=== PATIENT | female | born 1970 | race Caucasian/White ===

== ENCOUNTER 2024-12-04 19:03 | Emergency (ER) | payer BC, SELFPAY ==
[2024-12-04] VITALS (14 sets, daily range): BP systolic 164–194; BP diastolic 85–112; PULSE 83–99; RESP 16; TEMP 36.7; O2SAT 95–98; BMI 29.8
--- OUTSIDE RECORDS SUMMARY | 2024-12-04 19:05 | XMS_ITS | Clinical Summary ---
Author Organization [facility] Address [address] , [address] [place] [address] Phone Care Team Providers Care Seconds Handler Name Role [facility] Unavailable Unava ilable Conditions or Problems Problem Name Problem Code Onset Date Status Entry Date Provider Comment Standard Description Annotate Other lesions of median nerve, bilateral upper limbs [id number] (SNOMED CT) Active Sumit Morocho MD Lesion of median nerve Medications No information available. Medications Administered No information available. Allergies, Adverse Reactions, Alerts No information available. Results Date Name Value Unit Range Flag Description Internal Other: Verbal Autho rization/Emergency Contact - OBS VERBAL_EMER Done Verbal au thorization and emergency contact Internal Other: Authorizatio n - OBS [email or web address] Yes Authoriza tion: Release of Information - Authorize [facility] - Payment and Healthcare Operations ROIAUTHOTHER Yes Authoriz ation: Release of Information - Authorize Others/Insurance - Payment and Healthcare Operations HIECONSENT Yes Consent To Release information to the Health Information Exchange (HIE) [email or web address] Yes Authorizat ion: Authorization for [facility] to leave messages, voicemail, send text messages, send emails AUTHRELHCARE Yes Authoriz ation: Release/Retrieval of Information to/from Healthcare Facilities, Pharmacy Benefit Payers and Providers AUTHPRIVPRAC Yes Authoriz ation: Notice of privacy practices AUTHBENEFIT Yes Authoriza tion: Assignment of Benefits and Payment Agreement Plan of Care No information available. Procedures Code Procedure Name Date Entry Date CPT-24361 Nerve Conduction 9-10 studies CPT-96777 EMG with NCS (5+ muscles) - 2 limbs 11/04 Vital Signs No information available. Immunizations No information available. Advance Directives No information available.
--- OUTSIDE RECORDS SUMMARY | 2024-12-04 19:06 | XMS_ITS | Clinical Summary ---
Author Organization [employer] [facility] Address [address] [place] [id number] Care Team Providers Care Jaw Skinner Name Role Phone Heather Uribe MD Primary Care Provider [phone] Allergies Active Allergy Reactions Criticality Noted Date Comments Amoxicillin Rash,Hives,Itching 08/19/2012 AMOXICILLIN Rosuvastatin Diarrhea,Nausea Only Medium 02/24/2023 Medications No known medications Active Problems Problem Noted Date Diagnosed Date Right carpal tunnel syndrome 11/13/2023 Left carpal tunnel syndrome 11/13/2023 Bilateral carpal tunnel syndrome 10/30/2023 Pap smear for cervical cancer screening 01/21/20 23 Overview (01/20/2023): 12/19/2022: NIL/HPV negative Plan: Pap and HPV due in 5 years. Mixed hyperlipidemia 07/07/2019 Palpitations 08/19/2012 Immunizations Immunization Administration Dates Next Due Hepatitis A (Adult) 08/10/2012,11/05/2009,2003 Hepatitis A, Unspecified 11/05/2009 Hepatitis B (Adult) 05/28/2004,03/10/2003,1999 Influenza, High-dose Inactivated 06/17/2011 Influenza, IIV3 (Age 6-35 mos) 05/22/2009 Influenza, IIV3 (Age >=3 years) 06/17/2011,06/24 Td (Age >=7 Years) 07/20/1997 Tdap 06/24/2024,07/07/2016 Zoster (Shingrix-RZV, recombinant) 01/16/2022 Family History Medical History Relation Name Comments No Known Problems Brother 1 No Known Problems Brother 2 Hypertension Father Cancer-breast Mother Hyperthyroidism Mother Grave's Other Mother prediabetes Cancer-ovarian No Family History Relation Name Status Comments Brother 1 Alive Brother 2 Alive Father Alive Mother Alive Diagnosed at 55 Social History Tobacco Use Types Packs/Day Years Used Date Smoking Tobacco: Never Smokeless Tobacco: Never Alcohol Use Standard Drinks/Week Comments Yes 0 (1 standard drink = 0.6 oz pur e alcohol) 6 drinks/week PHQ-2 Answer Date Recorded PHQ-2 TOTAL SCORE 0 12/19/2022 Social Connections Answer Date Recorded Frequency of Communication with Friends and Fami ly 0 12/19/2022 Financial Resource Strain Answer Date R ecorded Difficulty of Paying Living Expenses 3 12/19/2022 Difficulty of Paying Living Expenses Not on file 12/19/2022 Food Insecurity Answer Date Recorded Worried About Running Out of Food in the Last Ye ar 1 12/19/2022 Transportation Needs Answer Date Record ed Lack of Transportation (Medical) 1 12/19/2022 Housing Stability Answer Date Recorded Unable to Pay for Housing in the Last Year 1 12/19/2022 Comments No Sex and Gender Information Value Date Recorded Sex Assigned at Not on file Legal Sex Female 5:27 AM [employer] Gender Identity Not on file Sexual Orientation Not on file Obstetrics History Para Term AB IAB SAB Ectopic Multiple Livin g Live Births 2 2 Date Outcome GA Total Labor Labor/2nd/3rd Weight Sex Type Anes PTL Char A1 A5 Name Clin Para Para Last Filed Vital Signs Vital Sign Reading Time Taken Comments Blood Pressure 175/89 06/24/2024 7:23 PM CDT Pulse 78 06/24/2024 7:23 PM CDT Temperature 36.3 C (97.4 F) 06/24/2024 7:23 PM CDT Respiratory Rate 16 06/24/2024 7:23 PM CDT Oxygen Saturation 97% 06/24/2024 7:23 PM CDT Inhaled Oxygen Concentration - - Weight 92.6 kg (204 lb 3.2 oz) 02/24/2023 8:56 A M CDT Height 171.7 cm (5' 7.6) 12/19/2022 10:42 AM CD T Body Mass Index 31.42 12/19/2022 10:42 AM CDT Plan of Treatment Health Maintenance Due Date Last Done Comments Pneumococcal series for age 50+ (1 of 1 - PCV) 2020 Zoster (shingles) series for age 50+ (2 of 2) 03/13/2022 01/16/2022 BMI (ht and wt on same day) for age 18+ 12/20/2023 12/19/2022, 06/07/2021, 05/21/2021 Depression screening for age 12+ 12/20/2023 12/20/19, 06/07/2021 Mammogram for age 45-75 01/21/2024 01/21/20, 09/17/2021, 09/11/2020, Additional history exists COVID-19 vaccine series ( - season) 2024 Influenza Vaccine (Season Ended) 2025 06/17/2011, 06/17/2011, 06/24/2010, Additional history exists Fecal testing sDNA-FIT ([place] guard) for age 45-75 12/30/2025 12/30/2022 Lipids for age 45-75 12/20/2027 12/19/2022, 06/07/20 Pap test for age 21-65 12/20/2027 , 12/19/2022, 07/07/2019 (Verified in Care Everywhere or Patient Record) Tetanus booster 06/24/2034 06/24/2024, 02/2016, 07/20/1997 HIV for age 15-65 Completed 12/19/2022 Hepatitis C screening for ag e 18-79 Completed 12/19/2022 Tdap Completed 06/24/2024, 07/07/2016 Procedures Procedure Name Priority Date/Time Associated Diagnosis Comments XR MAMMO EDWIN BILAT SCREEN Routine 01/20/2023 7:59 AM CDT Screening mammogram for breast cancer SDNA-FIT EXTERNAL (COLOGUARD) Routine 12/30/2022 8:15 AM CDT Colon cancer screening LC HIV-1/O/2, 4TH GENERATION Routine 12/19/2022 11:00 AM CDT Encounter for screening for HIV LC HCV ANTIBODY RFX TO QUANT PCR Routine 12/19/2022 11:00 AM CDT Need for hepatitis C screening test LC LIPID PANEL AND CHOL/HDL RATIO Routine 12/19/2022 11:00 AM CDT Routine general medical examination at a health care facility HPV HIGH RISK Routine 12/19/2022 9:50 AM CDT Cervical cancer screening from Last 3 Months or Most Recently Relevant to Health Maintenance Results * XR MAMMO EDWIN BILAT SCREEN (01/20/2023 7:59 AM CDT) Anatomical Region Laterality Modality BREASTS, Breast Left, Breast Right Bilateral Mammography Impressions 01/21/2023 9:14 AM CDT There is no radiographic evidence for malignancy. Recommend annual mammograms. MAMMOGRAM ASSESSMENT: ACR 1 Negative PATIENTS: You will also receive a letter with your examination results in an easy to read format. If you have questions about your results, please contact your referring provider. Narrative 01/21/2023 9:14 AM CDT For Patients: As a result of the Cures Act, medical imaging exams and procedure reports are released immediately into your electronic medical record. You may view this report before your referring provider. If you have questions, please contact your health care provider. XR MAMMO EDWIN BILAT SCREEN [[id number]] CLINICAL HISTORY: This is an asymptomatic 52 y.o. patient. INDICATION FOR EXAM: Mammogram Screening. TECHNIQUE: CC & MLO views were obtained. This study was evaluated with the assistance of Computer-Aided Detection. Breast Tomosynthesis was used in interpretation. COMPARISON FILM: Yes 09/17/21 [facility] 09/11/20 [facility] FINDINGS: The breasts are heterogeneously dense, which may obscure small masses. There are no dominant masses, suspicious micro calcifications or areas of architectural distortion. Heather Uribe MD MAMMO Final Result * SDNA-FIT EXTERNAL (COLOGUARD) (12/30/2022 8:15 AM CDT) NONINV COLON CA DNA+OCC BLD SCRN STL-IMP Negative Negative 01/08/2023 9:56 AM CDT [facility] (CLIA #:[id number]) Comment: NEGATIVE TEST RESULT. A negative Cologuard result indicates a low likelihood that a colorectal cancer (CRC) or advanced adenoma (adenomatous polyps with more advanced pre-malignant features) is present. The chance that a person with a negative Cologuard test has a colorectal cancer is less than 1 in 1500 (negative predictive value >99.9%) or has an advanced adenoma is less than 5.3% (negative predictive value 94.7%). These data are based on a prospective cross-sectional study of 10,000 individuals at average risk for colorectal cancer who were screened with both Cologuard and colonoscopy. (Kathleen Mendenhall. et al, N Engl J Med 2014;370(14):0133-5593) The normal value (reference range) for this assay is negative. COLOGUARD RE-SCREENING RECOMMENDATION: Periodic colorectal cancer screening is an important part of preventive healthcare for asymptomatic individuals at average risk for colorectal cancer. Following a negative Cologuard result, the [place] [employer] and U.S. Multi-Society Task Force screening guidelines recommend a Cologuard re-screening interval of 3 years. References: [place] [employer] Guideline for Colorectal Cancer Screening: https://www.cancer.org/cancer/iqgax-rzasju-kjaczf/xufhzxjol-netcljfzk-hqmiepp/ac s-rec ommendations.html.; Lasha HERNANDEZ, Dash ROJAS, Dorita ArangoK, Colorectal Cancer Screening: Recommendations for Physicians and Patients from the U.S. Multi-Society Task Force on Colorectal Cancer Screening , Am J Gastroenterology 2017; 112:4652-2036. TEST DESCRIPTION: Composite algorithmic analysis of stool DNA-biomarkers with hemoglobin immunoassay. Quantitative values of individual biomarkers are not reportable and are not associated with individual biomarker result reference ranges. Cologuard is intended for colorectal cancer screening of adults of either sex, 45 years or older, who are at average-risk for colorectal cancer (CRC). Cologuard has been approved for use by the U.S. FDA. The performance of Cologuard was established in a cross sectional study of average-risk adults aged 50-84. Cologuard performance in patients ages 45 to 49 years was estimated by sub-group analysis of near-age groups. Colonoscopies performed for a positive result may find as the most clinically significant lesion: colorectal cancer [4.0%], advanced adenoma (including sessile serrated polyps greater than or equal to 1cm diameter) [20%] or non- advanced adenoma [31%]; or no colorectal neoplasia [45%]. These estimates are derived from a prospective cross-sectional screening study of 10,000 individuals at average risk for colorectal cancer who were screened with both Cologuard and colonoscopy. (Kathleen Mendenhall. et al, N Engl J Med 2014;370(14):3105-2575.) Cologuard may produce a false negative or false positive result (no colorectal cancer or precancerous polyp present at colonoscopy follow up). A negative Cologuard test result does not guarantee the absence of CRC or advanced adenoma (pre-cancer). The current Cologuard screening interval is every 3 years. ([place] [employer] and U.S. Multi-Society Task Force). Cologuard performance data in a 10,000 patient pivotal study using colonoscopy as the reference method can be accessed at the following location: www.PutPlace/results. Additional description of the Cologuard test process, warnings and precautions can be found at www.[employer]rd.com. Stool specimen (specimen) (Rectum) 12/30/2022 8:15 AM CDT 12/31/2022 7:30 PM CDT Heather Uribe MD URINE Final Result [facility] (CLIA #:[id number]) [place] [place] [address], * (ABNORMAL) LC LIPID PANEL AND CHOL/HDL RATIO (12/19/2022 11:00 AM CDT) Cholesterol, Total 307(H) 100 - 199 mg/dL 12/23/2022 10:10 AM [facility] ([facility]) Triglycerides 213(H) 0 - 149 mg/dL 12/23/2022 10:10 AM [facility] ([facility]) HDL Cholesterol 50 >39 mg/dL 10:[address] [facility] ([facility]) VLDL Cholesterol Marko 42(H) 5 - 40 mg/dL 12/23/2022 10:10 AM [facility] ([facility]) LDL Chol Calc ([facility]) 215(H) 0 - 99 mg/dL 12/23/2022 10:[address] [facility] ([facility]) Lipid Comment: Comment 12/23/2022 10:10 AM [facility] ([facility]) Comment: Possible Familial Hypercholesterolemia. FH should be suspected when fasting LDL cholesterol is above 189 mg/dL or non-HDL cholesterol is above 219 mg/dL. A family history of high cholesterol and heart disease in 1st degree relatives should be collected. J Clin Lipidol 2011;5:133-140 T. Chol/HDL Ratio 6.1(H) 0.0 - 4.4 ratio 12/23/2022 10:[address] [facility] ([facility]) Comment: T. Chol/HDL Ratio Men Women 1/2 Avg.Risk 3.4 3.3 Avg.Risk 5.0 4.4 2X Avg.Risk 9.6 7.1 3X Avg.Risk 23.4 11.0 Blood BLOOD SPECIMEN / Unknown Venipuncture / Unknown 12/19/2022 11:00 AM CDT 12/19/2022 11:00 AM CDT Narrative [facility] ([facility]) - 12/23/2022 10:10 AM CDT Performed at: [address] [place] [id number] Flight Purser: Todd Ortez MD, Phone: [phone] Heather Uribe MD SEND OUTS Final Result Performing Organization Address [facility]/ZIP Co de Phone Number [facility] ([facility]) [address] [place] [address], * HCV ANTIBODY RFX TO QUANT PCR (12/19/2022 11:00 AM CDT) HCV Ab Non Reactive Non Reactive 12/23/2022 10:06 PM CDT [facility] ([facility]) Blood BLOOD SPECIMEN / Unknown Venipuncture / Unknown 12/19/2022 11:00 AM CDT 12/19/2022 11:[address] [facility] ([facility]) - 12/23/2022 10:06 PM CDT Performed at: [address] [place] [id number] Flight Purser: Todd Ortez MD, Phone: [phone] Heather Uribe MD LABORATORY Final Result Performing Organization Address [facility]/ZIP Co de Phone Number [facility] ([facility]) [address] [place] [address], * HIV-1/O/2, 4TH GENERATION (12/19/2022 11:00 AM CDT) Pathologist [facility] HIV Scr 4th Gen Non Reactive Non Reactive 12/23/2022 11:09 AM CDT [facility] ([facility]) Comment: HIV Negative HIV-1/HIV-2 antibodies and HIV-1 p24 antigen were NOT detected. There is no laboratory evidence of HIV infection. Blood BLOOD SPECIMEN / Unknown Venipuncture / Unknown 12/19/2022 11:00 AM CDT 12/19/2022 11:[address] [facility] ([facility]) - 12/23/2022 11:09 AM CDT Performed at: [address] [id number] Flight Purser: Tdod Ortez MD, Phone: [phone] Heather Uribe MD LABORATORY Final Result [facility] ([facility]) [address] [place] [address] * HPV HIGH RISK (12/19/2022 9:50 AM CDT) TYPE 16 Negative Negative 12/24/2022 1:26 PM CDT [facility] TYPE 18 Negative Negative 12/24/2022 1:26 PM CDT [facility] OTHER HIGH RISK TYPES Negative Negative 12/24/2022 1:26 PM CDT [facility] Other (Cervical) Non-Blood / Unknown 12/19/2022 9:50 AM CDT 12/22/2022 3:08 PM CDT Narrative [facility] - 12/24/2022 1:26 PM CDT HPV types 16, 18, 31, 33, 35, 39, 45, 51, 52, 56, 58, 59, 66 and 68 DNA were undetectable or below the pre-set threshold. Methodology: Romana Cecille 4800 HPV Test Heather Uribe MD MICROBIOLOGY Final Result [facility] [address] [place] [address], from Last 3 Months or Most Recently Relevant to Health Maintenance Insurance [facility] Care Teams Jaw Skinner Relationship Specialty [place] [address] [place] [address] PCP - General Family Practice 06/07/21
--- NOTE | 2024-12-04 19:21 | CRLHL7_ITS ---
For Patients: As a result of the Century Cures Act, medical imaging exams and procedure reports are released immediately into your electronic medical record. You may view this report before your referring provider. If you have questions, please contact your health care provider. INDICATION: Trauma, fell 5-6 feet off a deck and landed on head. Neck pain. TECHNIQUE: CT cervical spine without contrast. COMPARISON: None. FINDINGS: Vertebrae: Straightening of the physiologic cervical lordosis. There are no fractures or suspicious bony lesions. Discs and facet joints: Disc spaces and facets are within expected limits. Extraspinal findings: Prevertebral soft tissues, visualized airway, and visualized lungs are unremarkable. IMPRESSION: No acute fracture or dislocation. Please note that all CT scans at this facility use dose modulation, iterative reconstruction, and/or weight-based dosing when appropriate to reduce radiation dose to as low as reasonably achievable. Dictated by Esteban Shearer MD @ 12/04/2024 7:57:55 PM (Electronically Signed)
--- NOTE | 2024-12-04 19:21 | CRLHL7_ITS ---
For Patients: As a result of the Century Cures Act, medical imaging exams and procedure reports are released immediately into your electronic medical record. You may view this report before your referring provider. If you have questions, please contact your health care provider. INDICATION: Trauma, fell 5-6 feet off deck, pain in upper shoulder area and upper thoracic spine. TECHNIQUE: CT chest, abdomen and pelvis acquired with 93 cc Isovue 370 IV contrast. COMPARISON: None. FINDINGS: CHEST: Cardiovascular structures: Heart size is normal. Thoracic aorta and main pulmonary artery are normal in caliber. Mediastinum and ralph: No mass or adenopathy. Lungs and pleura: Mild subsegmental atelectasis. No suspicious nodules, infiltrates, or effusions. Chest wall and axilla: No mass or adenopathy. Bones: No acute fracture or dislocation. ABDOMEN AND PELVIS: Liver: Diffuse hepatic parenchymal hypoattenuation. No sign of acute injury. Gallbladder and bile ducts: Unremarkable. Pancreas: Unremarkable. Spleen: Unremarkable. No sign of acute injury. Adrenal glands: Unremarkable. Kidneys: Unremarkable. GI tract: No acute findings. Normal appendix. Vascular structures: Incidentally noted retroaortic left renal vein. Mild atherosclerotic calcifications of the aorta and branch vessels. Mesenteric arteries are patent. Lymph nodes: Unremarkable. Miscellaneous: Unremarkable. No free air or significant free fluid. Pelvic Organs: Bladder is distended. Hypodense uterine lesion measuring 1.5 cm, possibly a fibroid (/). Bones: No acute fracture or dislocation. IMPRESSION: 1. No acute traumatic findings in the chest, abdomen, or pelvis. 2. Steatosis. Please note that all CT scans at this facility use dose modulation, iterative reconstruction, and/or weight-based dosing when appropriate to reduce radiation dose to as low as reasonably achievable. Dictated by Esteban Shearer MD @ 12/04/2024 8:12:44 PM (Electronically Signed)
--- NOTE | 2024-12-04 19:21 | CRLHL7_ITS ---
For Patients: As a result of the Century Cures Act, medical imaging exams and procedure reports are released immediately into your electronic medical record. You may view this report before your referring provider. If you have questions, please contact your health care provider. INDICATION: Trauma, fell 5-6 feet off a deck and landed on head. TECHNIQUE: CT head without contrast. COMPARISON: None. FINDINGS: CSF spaces: Within normal limits for age. Brain parenchyma and extra-axial spaces: The irizarry-white differentiation is unremarkable. No definite sign of mass, hemorrhage, or midline shift. No extra-axial fluid collection. Skull base and calvarium: Bilateral maxillary sinus mucous retention cysts. Mastoids are clear. The visualized orbits are grossly unremarkable. No skull fractures. IMPRESSION: No definite acute intracranial abnormality. No acute fracture. Please note that all CT scans at this facility use dose modulation, iterative reconstruction, and/or weight-based dosing when appropriate to reduce radiation dose to as low as reasonably achievable. Dictated by Esteban Shearer MD @ 12/04/2024 7:52:09 PM (Electronically Signed)
--- OUTSIDE RECORDS SUMMARY | 2024-12-04 19:31 | XMS_ITS | Clinical Summary ---
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 XR MAMMO EDWIN BILAT SCREEN [[id number]] CLINICAL HISTORY: This is an asymptomatic 52 [...] STL-IMP Negative Negative 01/08/2023 9:56 AM CDT [facility] (CLIA #:[id number]) Comment: NEGATIVE TEST RESULT. A negative Cologuard [...] Mendenhall. et al, N Engl J Med 2014;370(14):9331-5504) The normal value (reference range) for this assay is negative. COLOGUARD RE-SCREENING RECOMMENDATION: Periodic colorectal cancer screening is an important part of preventive healthcare for asymptomatic individuals at average risk for colorectal cancer. Following a negative Cologuard result, the [place] [employer] Society and U.S. Multi-Society Task Force screening guidelines recommend a Cologuard re-screening interval of 3 years. References: [place] [employer] Guideline for Colorectal Cancer Screening: https://www.cancer.org/cancer/xcyfj-lrnlwr-rruzfq/jgnomueoy-mtvpctwbd-lwrrkbw/ac s-rec ommendations.html.; Lasha HERNANDEZ, Dash ROJAS, Dorita ArangoK, Colorectal Cancer Screening: Recommendations for Physicians and Patients from the U.S. Multi-Society Task Force on Colorectal Cancer Screening , Am J Gastroenterology 2017; 112:8204-4984. TEST DESCRIPTION: Composite algorithmic analysis of stool [...] Mendenhall. et al, N Engl J Med 2014;370(14):0399-8291.) Cologuard may produce a false negative or false positive result (no colorectal cancer or precancerous polyp present at colonoscopy follow up). A negative Cologuard test result does not guarantee the absence of CRC or advanced adenoma (pre-cancer). The current Cologuard screening interval is every 3 years. ([place] [employer] and U.S. Multi-Society Task Force). Cologuard performance data in a 10,000 patient pivotal study using colonoscopy as the reference method can be accessed at the following location: www.Swifto/results. Additional description of the Cologuard test process, warnings and precautions can be found at www.N[employer]alogDigitalAdvisorrd.com. Stool specimen (specimen) (Rectum) 12/30/2022 8:15 AM CDT 12/31/2022 7:30 PM CDT Heather Uribe MD URINE Final Result [facility] (CLIA #:[id number]) [place] [address] [place] [address], * (ABNORMAL) LC LIPID PANEL AND CHOL/HDL RATIO (12/19/2022 11:00 AM CDT) Cholesterol, Total 307(H) 100 - 199 mg/dL 12/23/2022 10:10 AM [facility] ([facility]) Triglycerides 213(H) 0 - 149 mg/dL 12/23/2022 10:10 AM [facility] ([facility]) HDL Cholesterol 50 >39 mg/dL 10:10 AM [facility] ([facility]) VLDL Cholesterol Marko 42(H) 5 - 40 mg/dL 12/23/2022 10:10 AM [facility] ([facility]) LDL Chol Calc ([facility]) 215(H) 0 - 99 mg/dL 12/23/2022 10:10 AM [facility] ([facility]) Lipid Comment: Comment 12/23/2022 10:10 AM [facility] ([facility]) Comment: Possible Familial Hypercholesterolemia. FH should be suspected when fasting LDL cholesterol is above 189 mg/dL or non-HDL cholesterol is above 219 mg/dL. A family history of high cholesterol and heart disease in 1st degree relatives should be collected. J Clin Lipidol 2011;5:133-140 T. Chol/HDL Ratio 6.1(H) 0.0 - 4.4 ratio 12/23/2022 10:10 AM [facility] ([facility]) Comment: T. Chol/HDL Ratio Men Women 1/2 Avg.Risk 3.4 3.3 Avg.Risk 5.0 4.4 2X Avg.Risk 9.6 7.1 3X Avg.Risk 23.4 11.0 Blood BLOOD SPECIMEN / Unknown Venipuncture / Unknown 12/19/2022 11:00 AM CDT 12/19/2022 11:00 AM CDT Narrative [facility] ([facility]) - 12/23/2022 10:10 AM CDT Performed at: [address] [place] [id number] Pediatric Genetic Counselor: Todd Ortez MD, Phone: [phone] Heather Uribe MD SEND OUTS Final Result Performing Organization Address [facility]/ZIP Co de Phone Number [facility] ([facility]) [address] [place] [address], * HCV ANTIBODY RFX TO QUANT PCR (12/19/2022 11:00 AM CDT) HCV Ab Non Reactive Non Reactive 12/23/2022 10:06 PM CDT [facility] ([facility]) Blood BLOOD SPECIMEN / Unknown Venipuncture / Unknown 12/19/2022 11:00 AM CDT 12/19/2022 11:[address] [facility] ([facility]) - 12/23/2022 10:06 PM CDT Performed at: [address] [place] [id number] Pediatric Genetic Counselor: Todd Ortez MD, Phone: [phone] Heather Uribe MD LABORATORY Final Result Performing Organization Address [facility]/ZIP Co de Phone Number [facility] ([facility]) [address] [place] [address], * HIV-1/O/2, 4TH GENERATION (12/19/2022 11:00 AM CDT) Pathologist [facility] HIV Scr 4th Gen Non Reactive Non Reactive 12/23/2022 11:09 AM CDT [facility] ([facility]) Comment: HIV Negative HIV-1/HIV-2 antibodies and HIV-1 p24 antigen were NOT detected. There is no laboratory evidence of HIV infection. Blood BLOOD SPECIMEN / Unknown Venipuncture / Unknown 12/19/2022 11:00 AM CDT 12/19/2022 11:[address] [facility] ([facility]) - 12/23/2022 11:09 AM CDT Performed at: [address] [id number] Pediatric Genetic Counselor: Todd Ortez MD, Phone: [phone] Heather Uribe MD LABORATORY Final Result [facility] ([facility]) [address] [place] [id number] * HPV HIGH RISK (12/19/2022 9:50 AM CDT) TYPE 16 Negative Negative 12/24/2022 1:26 PM CDT [facility] TRAL LABORATORY TYPE 18 Negative Negative 12/24/2022 1:26 PM CDT [facility] TR[facility] LABORATORY OTHER HIGH RISK TYPES Negative Negative 12/24/2022 1:26 PM CDT [facility] Other (Cervical) Non-Blood / Unknown 12/19/2022 9:50 AM CDT 12/22/2022 3:08 PM CDT Narrative [facility] - 12/24/2022 1:26 PM CDT HPV types 16, 18, 31, 33, 35, 39, 45, 51, 52, 56, 58, 59, 66 and 68 DNA were undetectable or below the pre-set threshold. Methodology: Romana Cecille 4800 HPV Test Heather Uribe MD MICROBIOLOGY Final Result [facility] [address] [place] [address], from Last 3 Months or Most Recently Relevant to Health Maintenance Insurance [facility] Care Teams Ladder Operator Relationship Specialty [place] [address] [place] [address] PCP - General Family Practice 06/07/21
--- OUTSIDE RECORDS SUMMARY | 2024-12-04 19:31 | XMS_ITS | Clinical Summary ---
Author Organization [facility] Address [address] , [address] [place] [address] Phone Care Team Providers Care Equipment Tech Name Role [facility] Unavailable Unava ilable Conditions or Problems Problem Name Problem Code Onset Date Status Entry Date Provider Comment Standard Description Annotate Other lesions of median nerve, bilateral upper limbs [id number] (SNOMED CT) Active Sumit Morocho MD Lesion [...] Procedures Code Procedure Name Date Entry Date CPT-28255 Nerve Conduction 9-10 studies CPT-21275 EMG with NCS (5+ muscles) - 2 limbs 11/04 Vital Signs No information available. Immunizations No information available. Advance Directives No information available.
--- NOTE | 2024-12-04 19:37 | CRLHL7_ITS ---
For Patients: As a result of the Cures Act, medical imaging exams and procedure reports are released immediately into your electronic medical record. You may view this report before your referring provider. If you have questions, please contact your health care provider. Indication: Trauma. Technique: Left wrist, 3 views. Comparison: None. Findings/Impression: Bones: Alignment is normal. No displaced fractures or bone lesions. Joint spaces: Unremarkable. Soft tissues: Unremarkable. Dictated by Jc Waldron MD @ 12/04/2024 8:13:12 PM (Electronically Signed)
[2024-12-04] MEDS: 0.9 % SODIUM CHLORIDE 1000 ml 1,000 ML IV (19:55)
--- NOTE | 2024-12-04 19:55 | ED.FALL ---
HPI - Fall General Date Seen: 12/04/24 Chief Complaint: Fall/Minor Trauma Stated Complaint: Fall, head trauma, L arm injury Time Seen by Provider: 12/04/24 19:08 Source: patient, family, RN notes reviewed and old records reviewed Mode of arrival: ambulatory Limitations: no limitations History of Present Illness HPI Narrative: Patient is a 54-year-old female who was on her deck, when the stairs gave way and she went head 1st onto the mulch, with axial loading, distance was approximately 5-6 feet. Patient was driven here by her , she complains of neck pain left wrist pain and pain between her shoulders, she has no shortness of breath abdominal pain she is able to ambulate normally, her left wrist is sore also, with the swelling on the radial side of her wrist. She notes that she has decreased range of motion of her left wrist also. With some numbness that comes from the wrist up the side of her thumb. No previous history of head injury, neck injury, she denies any nausea type low p.o. double vision, nausea associated with this. She did not take any medications and this occurred approximately at 6:10 p.m. tonight. She was not drinking any alcohol. MD complaint: fall Fall from: from height (distance) (5-6 feet) Fall witnessed: yes, by family Place fall occurred: home Loss of consciousness: No Prolonged down time: no Symptoms prior to fall: none Context: tripped/slipped Location of injury: neck Severity: moderate Quality: burning and aching Associated symptoms (after fall): numbness Related Data Allergies Allergy/AdvReac Type Severity Reaction Status Date / Time amoxicillin Allergy Intermediate Hives Verified 12/04/24 19:56 Review of Systems Status of ROS: Reports: 10 or more systems reviewed and unremarkable except as noted in History and below Exam Narrative: Exam Narrative: Patient is seen immediately in stabilization room 2, TT a was not called. GCS is 15/15, she is alert oriented x3. Her pupils are equal round reactive to light she tracks normally with absence of nystagmus her TMs are normal and there is a negative Garcia sign she does have some petechiae noted on the top of her head consistent with an axial loading process. No laceration is noted, she has no palpable pain over her C-spine over the top of T1 upper thoracic spine she does have a little bit of discomfort she says. On palpation and a little bit off to the left side. Shoulders have full range of motion, biceps triceps bilaterally are normal, she has decreased movement of her left wrist. And swelling along radial side of her left wrist. Is noted. Finger abduction, 1st finger thumb opposition, are normal her control clerk repairs strengths are equal bilaterally, pulses are normal upper extremities chest is good air entry bilaterally with no wheezing crackles noted her heart sounds are normal no clicks murmurs or gallops her abdomen is soft, there is no guarding no organomegaly noted bowel sounds are normal pelvis is normal stable to rocking, she is able sit up for me, and her thoracic and lumbar spine are palpated and nontender with no bruising noted she moves her lower extremities full range of motion at the hips, and also knees, and ankles. She declined any pain medication at this time. Const: Vital Signs, click to edit/add: Vital Signs - 24 hr 12/04/24 19:07 12/04/24 19:18 12/04/24 19:19 Temperature 98.1 F Pulse Rate 92 97 Pulse Rate [Left P ulse Oximeter] 91 Respiratory Rate 16 Blood Pressure 187/112 H Blood Pressure [Ri ght Upper Arm] 186/104 H Pulse Oximetry 98 95 95 Oxygen Delivery Il thod Room Air 12/04/24 19:22 12/04/24 19:27 12/04/24 19:55 Temperature Pulse Rate 83 Pulse Rate [Left P ulse Oximeter] Respiratory Rate Blood Pressure 194/107 H 178/96 H 174/95 H Blood Pressure [Ri ght Upper Arm] Pulse Oximetry 95 Oxygen Delivery Il thod 12/04/24 20:01 12/04/24 20:22 12/04/24 20:24 Temperature Pulse Rate 97 89 Pulse Rate [Left P ulse Oximeter] Respiratory Rate Blood Pressure 164/88 H 179/85 H Blood Pressure [Ri ght Upper Arm] Pulse Oximetry 95 95 Oxygen Delivery Il thod 12/04/24 20:30 12/04/24 20:41 12/04/24 20:45 Temperature Pulse Rate 87 94 92 Pulse Rate [Left P ulse Oximeter] Respiratory Rate Blood Pressure 177/93 H Blood Pressure [Ri ght Upper Arm] Pulse Oximetry 96 96 96 Oxygen Delivery Il thod 12/04/24 21:00 12/04/24 21:02 Temperature Pulse Rate 92 99 Pulse Rate [Left P ulse Oximeter] Respiratory Rate Blood Pressure 185/91 H Blood Pressure [Ri ght Upper Arm] Pulse Oximetry 96 95 Oxygen Delivery Me thod Documenting provider has reviewed patient's vital signs: yes Course Course ED Course: Patient is done well her pain is much improved with the Toradol she is able to sit up and walk around in movement of her neck she does not really have a lot of tenderness but I suspect tomorrow there will be some pain in her neck, we will put her in a soft collar I have given her advice that if she needs more than just ibuprofen 100 mg 3 times a day she is to come back and be seen also she develops any paresthesias or numbness tingling weakness in her arms or legs. I would also recommend that she wear the splint on her left wrist for the next 7-10 days and follow up with her primary care physician mandatorily for recheck, she still has pain then x-ray of her left wrist would be indicated. May be an occult scaphoid fracture. Vital Signs Vital signs: Initial Vital Signs Temperature 98.1 F 12/04/24 19:07 Temperature Source Temporal Artery Scan 12/04/24 19:07 Pulse Rate 91 12/04/24 19:07 Pulse Rhythm Regular 12/04/24 19:07 Respiratory Rate 16 12/04/24 19:07 Blood Pressure 186/104 H 12/04/24 19:07 Blood Pressure Mean 131 H 12/04/24 19:07 Blood Pressure Position Sitting 12/04/24 19:07 Pulse Oximetry 98 12/04/24 19:07 Oxygen Delivery Method Room Air 12/04/24 19:07 Vital Signs Temperature 98.1 F 12/04/24 19:07 Pulse Rate 91 12/04/24 19:07 Respiratory Rate 16 12/04/24 19:07 Blood Pressure 186/104 H 12/04/24 19:07 Pulse Oximetry 98 12/04/24 19:07 Oxygen Delivery Method Room Air 12/04/24 19:07 Temperature 98.1 F 12/04/24 19:07 Pulse Rate 99 12/04/24 21:02 Respiratory Rate 16 12/04/24 19:07 Blood Pressure 185/91 H 12/04/24 21:02 Pulse Oximetry 95 12/04/24 21:02 Oxygen Delivery Method Room Air 12/04/24 19:07 Medications Administered Medications: Generic Name Dose Route Start Last Admin Trade Name Freq PRN Reason Stop Dose Admin Ketorolac Tromethamine 30 mg 12/04/24 20:00 12/04/24 20:36 Ketorolac 30 Mg/Ml Inj IVP 30 mg Q6H ROSARIO Administration Discontinued Medications Generic Name Dose Route Start Last Admin Trade Name Freq PRN Reason Stop Dose Admin Sodium Chloride 1,000 mls @ 1,000 mls/hr 12/04/24 19:30 12/04/24 19:55 0.9 % Sodium Chloride 1000 Ml IV 12/04/24 20:29 1,000 mls/hr .Q1H ROSARIO Administration MDM - Fall MDM Narrative Medical decision making narrative: Differential diagnosis includes but is not limited to arthritis, fracture, spinal stenosis, sprain, and strain. This includes the life-threatening complications of fractures. Differential Diagnosis Differential diagnosis: Likely syncope Medical Records Attestation: I reviewed the patient's medical records. Imaging Data CT scan - head: Radiologist's impression: [address] [address] Diagnostic Imaging Report Patient: Gena Mckeon MR#: [id number] : 1970 Acct:[id number] Loc: ED Service Date: 12/04/[address]: Ordering Physician: Brent Reynolds M.D. Date of Service: 12/04/24 Procedure(s): XR wrist LT min 3V Accession Number(s): [id number] cc: Heather Uribe M.D.; Brent Reynolds M.D.~ For Patients: As a result of the Cures Act, medical imaging exams and procedure reports are released immediately into your electronic medical record. You may view this report before your referring provider. If you have questions, please contact your health care provider. Indication: Trauma. Technique: Left wrist, 3 views. Comparison: None. Findings/Impression: Bones: Alignment is normal. No displaced fractures or bone lesions. Joint spaces: Unremarkable. Soft tissues: Unremarkable. Dictated by Jc Waldron MD @ 12/04/2024 8:13:12 PM (Electronically Signed)[address] [address] Diagnostic Imaging Report Patient: Gena Mckeon MR#: [id number] : 1970 Acct:[id number] Loc: ED Service Date: 12/04/24 Attending : Ordering Physician: Brent Reynolds M.D. Date of Service: 12/04/24 Procedure(s): CT head/brain wo con Accession Number(s): [id number] cc: Heather Uribe M.D.; Brent Reynolds M.D.~ For Patients: As a result of the Cures Act, medical imaging exams and procedure reports are released immediately into your electronic medical record. You may view this report before your referring provider. If you have questions, please contact your health care provider. INDICATION: Trauma, fell 5-6 feet off a deck and landed on head. TECHNIQUE: CT head without contrast. COMPARISON: None. FINDINGS: CSF spaces: Within normal limits for age. Brain parenchyma and extra-axial spaces: The irizarry-white differentiation is unremarkable. No definite sign of mass, hemorrhage, or midline shift. No extra-axial fluid collection. Skull base and calvarium: Bilateral maxillary sinus mucous retention cysts. Mastoids are clear. The visualized orbits are grossly unremarkable. No skull fractures. IMPRESSION: No definite acute intracranial abnormality. No acute fracture. Please note that all CT scans at this facility use dose modulation, iterative reconstruction, and/or weight-based dosing when appropriate to reduce radiation dose to as low as reasonably achievable. Dictated by Esteban Shearer MD @ 12/04/2024 7:52:09 PM (Electronically Signed)[place] [address] Diagnostic Imaging Report Patient: Gena Mckeon MR#: [id number] : 1970 Acct:[id number] Loc: ED Service Date: 12/04/[address]: Ordering Physician: Brent Reynolds M.D. Date of Service: 12/04/24 Procedure(s): CT chest abdomen pelv w con Accession Number(s): [id number] cc: Heather Uribe M.D.; Brent Reynolds M.D.~ For Patients: As a result of the Cures Act, medical imaging exams and procedure reports are released immediately into your electronic medical record. You may view this report before your referring provider. If you have questions, please contact your health care provider. INDICATION: Trauma, fell 5-6 feet off deck, pain in upper shoulder area and upper thoracic spine. TECHNIQUE: CT chest, abdomen and pelvis acquired with 93 cc Isovue 370 IV contrast. COMPARISON: None. FINDINGS: CHEST: Cardiovascular structures: Heart size is normal. Thoracic aorta and main pulmonary artery are normal in caliber. Mediastinum and ralph: No mass or adenopathy. Lungs and pleura: Mild subsegmental atelectasis. No suspicious nodules, infiltrates, or effusions. Chest wall and axilla: No mass or adenopathy. Bones: No acute fracture or dislocation. ABDOMEN AND PELVIS: Liver: Diffuse hepatic parenchymal hypoattenuation. No sign of acute injury. Gallbladder and bile ducts: Unremarkable. Pancreas: Unremarkable. Spleen: Unremarkable. No sign of acute injury. Adrenal glands: Unremarkable. Kidneys: Unremarkable. GI tract: No acute findings. Normal appendix. Vascular structures: Incidentally noted retroaortic left renal vein. Mild atherosclerotic calcifications of the aorta and branch vessels. Mesenteric arteries are patent. Lymph nodes: Unremarkable. Miscellaneous: Unremarkable. No free air or significant free fluid. Pelvic Organs: Bladder is distended. Hypodense uterine lesion measuring 1.5 cm, possibly a fibroid (5/232). Bones: No acute fracture or dislocation. IMPRESSION: 1. No acute traumatic findings in the chest, abdomen, or pelvis. 2. Steatosis. Please note that all CT scans at this facility use dose modulation, iterative reconstruction, and/or weight-based dosing when appropriate to reduce radiation dose to as low as reasonably achievable. Dictated by Esteban Shearer MD @ 12/04/2024 8:12:44 PM (Electronically Signed)[address] [address] Diagnostic Imaging Report Patient: Gena Mckeon MR#: [id number] : 1970 Acct:[id number] Loc: ED Service Date: 12/04/[address]: Ordering Physician: Brent Reynolds M.D. Date of Service: 12/04/24 Procedure(s): CT cervical spine wo con Accession Number(s): [id number] cc: Heather Uribe M.D.; Brent Reynolds M.D.~ For Patients: As a result of the Cures Act, medical imaging exams and procedure reports are released immediately into your electronic medical record. You may view this report before your referring provider. If you have questions, please contact your health care provider. INDICATION: Trauma, fell 5-6 feet off a deck and landed on head. Neck pain. TECHNIQUE: CT cervical spine without contrast. COMPARISON: None. FINDINGS: Vertebrae: Straightening of the physiologic cervical lordosis. There are no fractures or suspicious bony lesions. Discs and facet joints: Disc spaces and facets are within expected limits. Extraspinal findings: Prevertebral soft tissues, visualized airway, and visualized lungs are unremarkable. IMPRESSION: No acute fracture or dislocation. Please note that all CT scans at this facility use dose modulation, iterative reconstruction, and/or weight-based dosing when appropriate to reduce radiation dose to as low as reasonably achievable. Dictated by Esteban Shearer MD @ 12/04/2024 7:57:55 PM (Electronically Signed) Discharge Plan Discharge Clinical Impression: Fall, Head injury, Acute neck pain, Acute pain of left wrist Patient Disposition: Home w/ Parent or Adult Condition: Improved Instructions: Head Injury (DC), Fall Prevention (ED), Neck Pain (ED), Acute Neck Pain (ED) Additional Instructions: Home rest ibuprofen starting tomorrow 100 mg by mouth 3 times a day, use of soft collar, I recommend if you have any numbness tingling or weakness or worsening neck pain that she come back and be seen that we consider doing an MRI. I think overall that her very cheyenne lady. I would wear the splint that were going to give you on your left wrist for the next 5-7 days. And then mandatory follow-up with primary care for recheck if you have no pain then and I think nothing needs to be done but any pain I would re-x-ray your wrist. To rule out the scaphoid fracture. Activity Level: Light activity Follow Up/Referrals: Heather Uribe MD [Primary Care Provider] - Stand Alone Forms: [facility] Info Instructions
[2024-12-04] MEDS: KETOROLAC 30 MG/ML inj IVP (20:36)
== END 2024-12-04 22:07 | disposition home or self-care (01) ==
PROVIDERS: Emergency Provider Family Medicine; PCP Family Medicine
DX: S09.90XA Unspecified injury of head, initial encounter (principal); M54.2 Cervicalgia; M25.532 Pain in left wrist; W10.8XXA Fall (on) (from) other stairs and steps, initial encounter
CPT/HCPCS: 70450; 71260; 72125; 73110; 74177; 96374; 99284; 99285; J1885; J7030; Q9967